=== PATIENT | female | born 1970 | race Caucasian/White ===

== ENCOUNTER 2022-05-25 13:22 | Emergency (ER) | payer OTHER, SELFPAY ==
--- NOTE | ~2022-05-25 | XR_ITS ---
EXAMINATION: XR elbow LT min 3V DATE: 05/25/2022 15:38 INDICATION: Posterior left elbow pain post fall TECHNIQUE: Anteroposterior, two oblique and lateral views of the left elbow were obtained. COMPARISON: None. FINDINGS: Alignment is normal. No fracture or joint effusion. Joint spaces are normal. Small heterotopic ossicl e in the subcutaneous tissues posterior to the distal humerus. Soft tissues are otherwise unremarkabl e. IMPRESSION: 1. No left elbow joint effusion or osseous abnormality. Reviewed, dictated and finalized at location A. [facility] COUNSEL
--- NOTE | ~2022-05-25 | CT_ITS ---
EXAMINATION: CT thoracic lumbar wo con DATE: 05/25/2022 15:39 INDICATION: Midline and left-sided upper and lower back pain post fall. TECHNIQUE: High resolution computed tomography (CT) of the thoracic and lumbar spine was performed wi thout intravenous contrast. Additional sagittal and coronal reconstructions were performed. The dose- length product was 1405.16 mGy-cm. COMPARISON: None FINDINGS: Thoracic spine: 20 degrees thoracic levoscoliosis with mild lower thoracic kyphosis. Chronic appearing minimal to mil d compression fractures with up to 20% anterior vertebral body height loss at T5-T11. There has howev er linear sclerosis underlying small portion of the left anterior aspect of the superior endplate of T9 and right anterior aspect of the superior endplate of T11 suggesting acute to subacute progression . No retropulsion or central canal stenosis. Multilevel mild to moderate disc height loss in the uppe r thoracic spine and moderate to severe disc height loss in the lower thoracic spine. There is multil evel moderate to severe upper thoracic and mild to moderate lower thoracic facet osteoarthritis resul ting in mild neural foraminal stenosis at a few levels on both the left and right. Visualized portion s of the lungs are clear. No pleural effusion. Paravertebral soft tissues and the visualized portion of the mid to posterior mediastinum are unremarkable. Lumbar spine: 10 degrees lumbar dextroscoliosis. 3 mm anterolisthesis L3 on L4 with severe bilateral facet osteoart hritis. Vertebral body heights are normal. Moderate disc height loss at L3-L4. Mild disc height loss at T12-L1, L4-L5 and L5-S1. Mild to moderate facet osteoarthritis throughout the remainder of the lum bar spine. Disc bulges resulting in mild central canal stenosis at L2-L3 and L4-L5 and moderate to se divya central canal stenosis at L3-L4. Moderate bilateral neural foraminal stenosis at L4-L5 and mild bilateral neural foraminal stenosis at L2-L3 and L3-L4. Cholelithiasis. Paravertebral soft tissues ar e unremarkable. IMPRESSION: 1. Multiple predominantly chronic appearing minimal to mild compression fractures in the mid to lower thoracic spine with subtle linear sclerosis underlying small portions of the left anterior aspect of the superior endplate of T9 vertebral body and right anterior superior endplate of T11 suspicious fo r acute to subacute progression. 2. Moderate to severe thoracic and moderate lumbar spondylosis. 3. Cholelithiasis. Reviewed, dictated and finalized at location A. [employer] IMPRESSION: 1. Multiple predominantly chronic appearing minimal to mild compression fractur es in the mid to lower thoracic spine with subtle linear sclerosis underlying s mall portions of the left anterior aspect of the superior endplate of T9 verteb ral body and right anterior superior endplate of T11 suspicious for acute to marley bacute progression. 2. Moderate to severe thoracic and moderate lumbar spondylosis. 3. Cholelithiasis.
[2022-05-25 13:56] VITALS: BP 159/96; PULSE 100; RESP 20; TEMP 36.6; O2SAT 98
--- NOTE | 2022-05-25 14:49 | ED.FALL ---
HPI - Fall General Chief Complaint: Fall Stated Complaint: L side mid back and elbow pain from fall at home Time Seen by Provider: 05/25/22 14:49 History of Present Illness HPI Narrative: 52-year-old white female with history of chronic back pain fell backwards on her back going down the steps last night at 10:00 p.m. complains lumbar pain and left elbow pain. denies any neck pain head injury loss of consciousness difficulty breathing. Cough non, denies chest pain also denies any problems with nausea vomiting or diarrhea or voiding fever numbness weakness difficulty walking. She has chronic back pain and takes Lortab for this says she does not want anything for pain now. Related Data Allergies Allergy/AdvReac Type Severity Reaction Status Date / Time No Known Allergies Allergy Verified 05/25/22 14:02 Review of Systems Review of Systems: All systems reviewed & are unremarkable except as noted in HPI and below Constitutional: Constitutional: Reports no additional constitutional complaints Eyes: Eyes: Reports no additional eye complaints ENT: Reports system reviewed and no additional complaints, except as documented Cardiovascular: Cardiovascular: Reports as per HPI and Reports no additional cardiovascular complaints Respiratory: Respiratory: Reports as per HPI, Reports no additional respiratory complaints, Denies cough and Denies dyspnea Gastrointestinal: Gastrointestinal: Reports as per HPI and Reports no additional gastrointestinal complaints Genitourinary: Genitourinary: Reports no additional female genitourinary complaints and Reports as per HPI Musculoskeletal: Musculoskeletal: Reports no additional musculoskeletal complaints, Reports as per HPI and Reports back pain Integumentary/Breasts: Skin/Breast: Reports system reviewed and no additional complaints, except as docu Exam Const: Limitations: no limitations Other: Patient is a white female she appears in no apparent distress but then has twinges of pains and then yells out. Head is normocephalic atraumatic neck is supple nontender with full range of motion back shows a bruising across her lower lumbar area that crosses the midline with tenderness in the lumbar midline area as well as left para and right para lumbar areas. Pain is worse with movement. Negative straight leg raise deep tendon reflexes are +2 for lower extremities. Lungs are clear with good air exchange heart is regular rate and rhythm without murmurs gallops or rub vital signs are unremarkable. Abdomen is soft and nontender extremities no cyanosis clubbing or edema. Course Course Emergency Course: Patient did not want any for pain at this time. Evaluation and plan discussed and agreed upon. All questions were asked and answered and patient agreed with plan Vital Signs Vital signs: Vital Signs Temperature 36.6 C 05/25/22 13:56 Pulse Rate 100 05/25/22 13:56 Respiratory Rate 20 05/25/22 13:56 Blood Pressure 159/96 H 05/25/22 13:56 Pulse Oximetry 98 05/25/22 13:56 Oxygen Delivery Room Air 05/25/22 13:56 Temperature 36.6 C 05/25/22 13:56 Pulse Rate 100 05/25/22 13:56 Respiratory Rate 20 05/25/22 13:56 Blood Pressure 159/96 H 05/25/22 13:56 Pulse Oximetry 98 05/25/22 13:56 Oxygen Delivery Room Air 05/25/22 13:56 Discharge Plan Discharge Clinical Impression: Acute exacerbation of chronic low back pain, Contusion of lower back, Compression fracture, Degenerative disc disease at L5-S1 level Patient Disposition: Home, Self-Care Condition: Stable Instructions: Acute Low Back Pain (ED), Degenerative Disc Disease (ED), Vertebral Compression Fracture (ED) Additional Instructions: take your Lortab as prescribed. Low heating pad and or ice pack for 20 minutes as needed for pain. Return if you get worse or develops any new symptoms. Follow-up with private medical doctor next week. Follow-up/Referrals: UNKNOWN,DOCTOR [Primary Care Pro
[2022-05-25 15:50] VITALS: BP 152/101; PULSE 88; RESP 20; O2SAT 97
--- NOTE | 2022-05-25 17:28 | PC.NURSE ---
1550 pt refused pain meds states she has to drive home and has meds at home
[2022-05-25 17:30] VITALS: BP 169/100; PULSE 92; RESP 20; TEMP 36.6; O2SAT 97
== END 2022-05-25 17:34 | disposition home or self-care (01) ==
PROVIDERS: Emergency Provider Emergency Medicine
DX: M54.50 Low back pain, unspecified (principal); S30.0XXA Contusion of lower back and pelvis, initial encounter; M48.54XA Collapsed vertebra, not elsewhere classified, thoracic region, initial encounter for fracture; M47.817 Spondylosis without myelopathy or radiculopathy, lumbosacral region; W10.9XXA Fall (on) (from) unspecified stairs and steps, initial encounter
CPT/HCPCS: 72128; 72131; 73080; 99284